=== PATIENT | female | born 1950 | race Caucasian/White ===

== ENCOUNTER 2017-01-09 19:34 | Observation (INO) ==
[2017-01-09] MEDS ORDERED: Ondansetron 4 MG/2 ML VIAL IVP ONE (19:50)
[2017-01-09] MEDS ORDERED: Famotidine 20 MG/2 ML VIAL IVP ONE (19:50)
--- NOTE | 2017-01-09 19:50 | Emergency Department Note ---
Disposition Clinical Impression: Ureterolithiasis Disposition: Home, Self-Care Condition: Good Instructions: Kidney Stones (ED), Renal Colic (ED) Reasons to Return/Additional Instructions: Please follow up with your regular doctor. Call when you leave here to set up a follow up appointment. Please return at any time if you are concerned about your symptoms or feel you are getting worse. Please follow up with your regular doctor for any refills of medications. Prescriptions: Oxycodone HCl/Acetaminophen [Percocet 5-325 mg Tablet] 1 each PO Q6H PRN #9 tablet PRN Reason: Pain Referrals: Adrian Roberson MD [Primary Care Provider] - Jeremy Giordano DO [Non-Partnered Physician] - Forms: ED Satisfaction Letter Time of Disposition: 21:27 Abdominal Pain HPI - General Chief Complaint: ED Abdominal Pain Stated Complaint: r flank pain Time Seen by Provider: 01/09/17 19:37 Source: patient, EMS Mode of arrival: EMS Limitations: no limitations Nursing Notes Reviewed: Yes Vital Signs Reviewed: Yes - History of Present Illness HPI Narrative: This 66-year-old female who presents today with right-sided flank pain that radiates into her right lower quadrant. She states that this came on this evening when she was driving home from her son's house. She states she took her morphine around 5 PM but it is not helping with her pain. She states she has had kidney stones in the past but they have never hurt like this before. She states she is unable to urinate. She states no fevers or chills. States she is nauseated but not vomiting. Pain Scale: 10 - Related Data Home Medications Medication Instructions Recorded Confirmed Cholecalciferol (Vitamin D3) 5,000 mg PO HS 10/24/14 01/09/17 [Vitamin D3] Loperamide HCl [Loperamide] 2 mg PO 8XD PRN 10/24/14 01/09/17 Omeprazole [PriLOSEC] 20 mg PO DAILY 10/24/14 01/09/17 Ondansetron [Zofran] 8 mg PO Q8HR PRN 02/02/16 01/09/17 Tolterodine LA (24 HR) [Detrol LA] 4 mg PO DAILY 02/02/16 01/09/17 Budesonide [Entocort EC] 6 mg PO DAILY 12/16/16 01/09/17 Loratadine [Claritin] 10 mg PO DAILY 12/16/16 01/09/17 Multivitamin [One Daily 1 tab PO DAILY 12/16/16 01/09/17 Multivitamin] Opium Tincture [Opium Tincture] 5 drop PO Q3H PRN 12/16/16 01/09/17 Previous Rx's Medication Instructions Recorded Oxycodone HCl/Acetaminophen 1 each PO Q6H PRN #9 tablet 01/09/17 [Percocet 5-325 mg Tablet] Allergies Allergy/AdvReac Type Severity Reaction Status Date / Time ciprofloxacin [From Cipro] Allergy Mild Rash Verified 12/16/16 08:58 iodine Allergy Mild Rash Verified 12/16/16 08:58 ketoconazole [From Nizoral] Allergy Mild Rash Verified 12/16/16 08:58 mesalamine [From Asacol] Allergy Mild Rash Verified 12/16/16 08:58 aspirin [From Percodan] AdvReac Mild Nausea Verified 12/16/16 08:58 doxycycline [From Vibramycin] AdvReac Mild Nausea Verified 12/16/16 08:58 levothyroxine sodium AdvReac Mild Chest Pain Verified 12/16/16 08:58 meperidine [From Demerol] AdvReac Mild Nausea Verified 12/16/16 08:58 Oxycodone [From Percodan] AdvReac Mild Nausea Verified 12/16/16 08:58 prochlorperazine AdvReac Mild Nausea Verified 12/16/16 08:58 [From Compazine] promethazine AdvReac Mild Nausea Verified 12/16/16 08:58 pseudoephedrine AdvReac Mild Nausea Verified 12/16/16 08:58 [From Actifed] sulfamethoxazole AdvReac Mild Nausea Verified 12/16/16 08:58 [From Septra] Tinidazole [From Tindamax] AdvReac Mild Nausea Verified 12/16/16 08:58 trimethoprim [From Septra] AdvReac Mild Nausea Verified 12/16/16 08:58 triprolidine [From Actifed] AdvReac Mild Nausea Verified 12/16/16 08:58 Review of Systems: ROS reviewed and negative except as per HPI Chart generated with voice recognition software Abdominal Pain PMH - Past Medical History Medical history: Reports: arthritis, cancer, GERD, malignancy, SVT, valvular heart disease, other Female Surgical History: Reports: other Psychiatric history: Reports: no psych history - Social History Smoking status: Never smoker Alcohol use: Reports: none Drug use: Reports: none Physical Exam General: mild distress, VSS Head: normocephalic, atraumatic Neck: NO CLA, Supple Chest wall: normal rise, no crepitus, no deformity noted Lungs: CTAB Heart: RRR, no murmur Abd: soft, nontender, BS normal, nonbloody stool in ostomy bag : deferred MSK: strength equal in all four extremities Ext: moves all four extremities, no obvious deformities Skin: cap refill normal, warm, dry Psych: anxious - General Limitations: no limitations General appearance: alert, in no apparent distress Course Course Narrative: patient has a 3mm stone on the right. reviewed labs and ct with patient. discussed pain control. she has morphine at home. explained [place] has laws about pain Rxs for people on chronic meds. discussed reasons to return. discussed need to follow upw gopal Gregorio. Patient comfortable with plan. Vital Signs Temperature 98.1 F 01/09/17 19:36 Pulse Rate 84 01/09/17 19:36 Respiratory Rate 18 01/09/17 19:36 Blood Pressure 131/58 01/09/17 19:36 O2 Sat by Pulse Oximetry 99 01/09/17 19:36 Temperature 98.1 F 01/09/17 19:36 Pulse Rate 85 01/09/17 21:13 Respiratory Rate 16 01/09/17 21:13 Blood Pressure 126/72 01/09/17 21:13 O2 Sat by Pulse Oximetry 97 01/09/17 21:13 Oxygen Delivery Oxygen Delivery Room Air Abdominal Pain - Medical Records Medical records reviewed: Yes I reviewed the patient's medical records. - Lab Data Lab results reviewed: Yes I reviewed the patient's lab results. Result diagrams: 01/09/17 20:02 01/09/17 20:02 Lab Results 01/09/17 01/09/17 01/09/17 Range/Units 20:02 20:02 20:02 WBC 7.5 (4.3-11.1) K/mcL RBC 3.99 (3.82-4.97) M/mcL Hgb 13.2 (11.5-15.4) g/dL Hct 39.9 (35.3-44.9) % MCV 100.0 (83.0-100.0) fL MCH 33.1 (28.0-33.3) pg MCHC 33.1 (31.6-35.5) g/dL RDW 14.0 (11.5-14.5) % Plt Count 133 L (140-400) K/mcL MPV 10.3 (9.4-12.4) fL Immature Gran % 0.4 (0-4) % Seg Neutrophils % 81.4 % Lymphocytes % 11.0 % Monocytes % 4.8 % Eosinophils % 2.0 % Basophils % 0.4 % Neutrophils # 6.1 (1.6-8.9) K/mcL Lymphocytes # 0.8 (0.6-4.6) K/mcL Monocytes # 0.4 (0.0-1.3) K/mcL Eosinophils # 0.2 (0.0-0.6) K/mcL Basophils # 0.0 (0.0-0.2) K/mcL PT (9.4-12.1) Seconds INR APTT (26.0-36.0) Seconds Sodium 144 (136-145) mEq/L Potassium 4.0 (3.5-4.5) mEq/L Chloride 115 H (98-109) mEq/L Carbon Dioxide 15 L (19-29) mEq/L BUN 19 (7-20) mg/dL Creatinine 1.14 H (0.57-1.11) mg/dL Est GFR ( Amer) 58 L (> 60) Est GFR (Non-Af Amer) 48 L (> 60) BUN/Creatinine Ratio 17 (6-26) Glucose 111 H (70-99) mg/dL Calculated Osmolality 301 H (280-300) Lactic Acid 1.6 (0.5-2.2) mmol/L Calcium 9.5 (8.6-10.8) mg/dL Total Bilirubin 0.4 (0.2-1.2) mg/dL Direct Bilirubin 0.2 (0.0-0.5) mg/dL Indirect Bilirubin 0.2 (0.0-1.2) mg/dL AST 24 (5-34) Units/L ALT 24 (0-55) Units/L Alkaline Phosphatase 118 (38-126) Units/L Serum Total Protein 6.6 (6.0-8.3) g/dL Albumin 3.6 (3.5-5.0) g/dL Globulin 3.0 (2.4-3.5) g/dL Albumin/Globulin Ratio 1.2 (1.1-2.2) Amylase 126 H (25-125) Units/L Lipase 51 (8-78) Units/L Urine Color (Yellow) Urine Clarity (Clear) Urine pH (5.0-8.0) pH Units Ur Specific [place] (1.010-1.025) Urine Protein (Neg-Trace) mg/dL Urine Glucose (UA) (Normal) mg/dL Urine Ketones (Negative) mg/dL Urine Blood (Negative) Urine Nitrite (Negative) Urine Bilirubin (Negative) Urine Urobilinogen (Normal) mg/dL Ur Leukocyte Esterase (Negative) Urine Microscopic RBC (0-3) per hpf Urine Microscopic WBC (0-3) per hpf Ur Squamous Epith Cells (None-Few) per lpf Ur Renal Epithelial Cell (None-Few) per hpf Urine Bacteria (None-Few) per hpf Hyaline Casts (None-Few) per lpf Other Casts Urine Mucus (Few) Ur Culture Indicated? (NO) 01/09/17 01/09/17 Range/Units 20:08 20:40 WBC (4.3-11.1) K/mcL RBC (3.82-4.97) M/mcL Hgb (11.5-15.4) g/dL Hct (35.3-44.9) % MCV (83.0-100.0) fL MCH (28.0-33.3) pg MCHC (31.6-35.5) g/dL RDW (11.5-14.5) % Plt Count (140-400) K/mcL MPV (9.4-12.4) fL Immature Gran % (0-4) % Seg Neutrophils % % Lymphocytes % % Monocytes % % Eosinophils % % Basophils % % Neutrophils # (1.6-8.9) K/mcL Lymphocytes # (0.6-4.6) K/mcL Monocytes # (0.0-1.3) K/mcL Eosinophils # (0.0-0.6) K/mcL Basophils # (0.0-0.2) K/mcL PT 11.2 (9.4-12.1) Seconds INR 1.0 APTT 36.7 H (26.0-36.0) Seconds Sodium (136-145) mEq/L Potassium (3.5-4.5) mEq/L Chloride (98-109) mEq/L Carbon Dioxide (19-29) mEq/L BUN (7-20) mg/dL Creatinine (0.57-1.11) mg/dL Est GFR ( Amer) (> 60) Est GFR (Non-Af Amer) (> 60) BUN/Creatinine Ratio (6-26) Glucose (70-99) mg/dL Calculated Osmolality (280-300) Lactic Acid (0.5-2.2) mmol/L Calcium (8.6-10.8) mg/dL Total Bilirubin (0.2-1.2) mg/dL Direct Bilirubin (0.0-0.5) mg/dL Indirect Bilirubin (0.0-1.2) mg/dL AST (5-34) Units/L ALT (0-55) Units/L Alkaline Phosphatase (38-126) Units/L Serum Total Protein (6.0-8.3) g/dL Albumin (3.5-5.0) g/dL Globulin (2.4-3.5) g/dL Albumin/Globulin Ratio (1.1-2.2) Amylase (25-125) Units/L Lipase (8-78) Units/L Urine Color Yellow (Yellow) Urine Clarity Clear (Clear) Urine pH 5.5 (5.0-8.0) pH Units Ur Specific [place] >= 1.030 H (1.010-1.025) Urine Protein 30 H (Neg-Trace) mg/dL Urine Glucose (UA) Normal (Normal) mg/dL Urine Ketones Trace H (Negative) mg/dL Urine Blood Moderate H (Negative) Urine Nitrite Negative (Negative) Urine Bilirubin Negative (Negative) Urine Urobilinogen Normal (Normal) mg/dL Ur Leukocyte Esterase Negative (Negative) Urine Microscopic RBC 50-100 H (0-3) per hpf Urine Microscopic WBC 0-3 (0-3) per hpf Ur Squamous Epith Cells Few (None-Few) per lpf Ur Renal Epithelial Cell Few (None-Few) per hpf Urine Bacteria Moderate H (None-Few) per hpf Hyaline Casts Few (None-Few) per lpf Other Casts See Below A Urine Mucus Few (Few) Ur Culture Indicated? NO (NO) - Radiology Data Radiology results reviewed: Yes I reviewed the patient's radiology results.
[2017-01-09 20:08] LABS: Basophils % 0.4 %; Eosinophils # 0.2 K/mcL (0.0-0.6); Hematocrit 39.9 % (35.3-44.9); Hemoglobin 13.2 g/dL (11.5-15.4); Immature Granulocytes % 0.4 % (0-4); Lymphocytes # 0.8 K/mcL (0.6-4.6); Mean Corpuscular HGB Conc 33.1 g/dL (31.6-35.5); Mean Corpuscular Hemoglobin 33.1 pg (28.0-33.3); Mean Platelet Volume 10.3 fL (9.4-12.4); Monocytes # 0.4 K/mcL (0.0-1.3); Monocytes % 4.8 %; Neutrophils # 6.1 K/mcL (1.6-8.9); Platelet Count 133 K/mcL (140-400); Red Blood Count 3.99 M/mcL (3.82-4.97); Segmented Neutrophils % 81.4 %
[2017-01-09] MEDS ORDERED: 0.9 % Sodium Chloride 1,000 ML ONE ×2 (20:17→22:14)
[2017-01-09 20:18] LABS: Prothrombin Time 11.2 Seconds (9.4-12.1)
[2017-01-09 20:21] LABS: Activated Partial Thrombo Time 36.7 Seconds (26.0-36.0)
[2017-01-09] MEDS ORDERED: *HR* FentaNYL (PF) 100 MCG/2 ML VIAL IVP ONE (20:25)
[2017-01-09 20:34] LABS: Albumin 3.6 g/dL (3.5-5.0); Albumin/Globulin Ratio 1.2 (1.1-2.2); Bilirubin,Direct 0.2 mg/dL (0.0-0.5); Bilirubin,Indirect 0.2 mg/dL (0.0-1.2); Bilirubin,Total 0.4 mg/dL (0.2-1.2); Calcium 9.5 mg/dL (8.6-10.8); Total Protein 6.6 g/dL (6.0-8.3)
[2017-01-09 20:47] LABS: Bilirubin,Urine Negative (Negative); Blood,Urine Moderate (Negative); Clarity,Urine Clear (Clear); Color,Urine Yellow (Yellow); Glucose,Urine (UA) Normal (Normal); Ketones,Urine Trace mg/dL (Negative); Leukocyte Esterase,Urine Negative (Negative); Nitrite,Urine Negative (Negative); PH,Urine 5.5 pH Units (5.0-8.0); Protein,Urine 30 mg/dL (Neg-Trace); Specific Gravity,Urine >= 1.030 (1.010-1.025); Urobilinogen,Urine Normal (Normal)
[2017-01-09 20:56] LABS: Hyaline Casts,Urine Few per lpf (None-Few); Mucus,Urine Few (Few); Squamous Epithelial Cell,Urine Few per lpf (None-Few)
[2017-01-09 21:03] LABS: Bacteria,Urine Moderate per hpf (None-Few); RBC,Urine 50-100 per hpf (0-3); Renal Epithelial Cells,Urine Few per hpf (None-Few); WBC,Urine 0-3 per hpf (0-3)
[2017-01-09] MEDS ORDERED: *HR* OxyCODONE/APAP 5/325 TABLET PO ONE ×2 (21:18→22:48)
[2017-01-09] MEDS ORDERED: Naloxone 0.4 MG/ML INJ IVP PRN (22:14)
[2017-01-09] MEDS ORDERED: Ondansetron ODT 4 MG TAB.RAPDIS PO PRN (22:14)
[2017-01-09] MEDS ORDERED: *HR* OxyCODONE Immed Rel 5 MG TABLET PO PRN (22:14)
[2017-01-09] MEDS ORDERED: *HR* OxyCODONE/APAP 5/325 TABLET PO PRN (22:48)
[2017-01-09] MEDS: Ondansetron ODT 4 MG TAB.RAPDIS SL PRN (23:08)
[2017-01-09] MEDS: ALPRAZolam 0.5 MG TABLET PO PRN (23:08)
[2017-01-10 00:11] LABS: Bilirubin,Urine Negative (Negative); Blood,Urine Moderate (Negative); Clarity,Urine Slightly Cloudy (Clear); Color,Urine Yellow (Yellow); Glucose,Urine (UA) Normal (Normal); Ketones,Urine Negative (Negative); Leukocyte Esterase,Urine Negative (Negative); Nitrite,Urine Negative (Negative); PH,Urine 5.5 pH Units (5.0-8.0); Protein,Urine 30 mg/dL (Neg-Trace); Specific Gravity,Urine >= 1.030 (1.010-1.025); Urobilinogen,Urine Normal (Normal)
[2017-01-10 00:15] LABS: Bacteria,Urine Moderate per hpf (None-Few); Hyaline Casts,Urine Moderate per lpf (None-Few); Mucus,Urine Few (Few); RBC,Urine 15-30 per hpf (0-3); Squamous Epithelial Cell,Urine Moderate per lpf (None-Few)
[2017-01-10] MEDS: *HR* OxyCODONE/APAP 5/325 TABLET PO PRN ×3 (02:49→20:39)
[2017-01-10] MEDS: Tolterodine LA (24 HR) 2 MG CAP.ER.24H PO SCH (07:56)
[2017-01-10] MEDS: Loratadine 10 MG TABLET PO SCH (07:57)
[2017-01-10] MEDS: Budesonide [Entocort Ec] 6 MG PO SCH (08:01)
[2017-01-10 11:05] LABS: Eosinophils # 0.3 K/mcL (0.0-0.6); Hemoglobin 12.8 g/dL (11.5-15.4)
[2017-01-10 11:14] LABS: Calcium 9.1 mg/dL (8.6-10.8); Potassium 3.7 mEq/L (3.5-4.5)
[2017-01-10 11:44] LABS: Basophils % 0.3 %; Eosinophils % 5.1 %; Immature Granulocytes % 0.3 % (0-4); Lymphocytes # 1.3 K/mcL (0.6-4.6); Lymphocytes % 19.2 %; Monocytes # 0.4 K/mcL (0.0-1.3); Monocytes % 5.7 %; Neutrophils # 4.5 K/mcL (1.6-8.9); Segmented Neutrophils % 69.4 %
[2017-01-10 11:45] LABS: Hematocrit 38.1 % (35.3-44.9); Mean Corpuscular Hemoglobin 33.8 pg (28.0-33.3); Mean Corpuscular Volume 100.5 fL (83.0-100.0); Red Blood Count 3.79 M/mcL (3.82-4.97)
[2017-01-10 11:46] LABS: Mean Corpuscular HGB Conc 33.6 g/dL (31.6-35.5); Mean Platelet Volume 9.9 fL (9.4-12.4); Platelet Count 131 K/mcL (140-400); Red Cell Distribution Width 14.2 % (11.5-14.5)
--- NOTE | 2017-01-10 12:28 | Internal Med History&Physical ---
Date of Encounter: 01/10/17 Time of Encounter: 11:55 Assessment and Plan (1) Ureterolithiasis Current visit: Yes Status: Acute She will be started on IV fluids and be given scheduled and prn analgesics. Further workup will be done as needed. (2) Azotemia Current visit: Yes Status: Acute We will give IV fluids and monitor renal indices. Internal Medicine - H&P: HPI Chief complaint: Right flank pain Admitted From: Home Plans for Post Hospital Care: Home History of present illness: Ms. Caba is a 66 year old female who states she had abrupt onset of severe right flank pain while riding a car the afternoon of admission. She became nauseated and had dry heaves. When she arrived home the pain had not lessened so her called the squad. She was brought to emergency room and evaluated. CT scan showed 3 mm stone in the distal ureter. She was admitted to [facility] for ongoing care needs. She reports she has passed 2 previous small stones but has not had stone analysis. Her history is pertinent otherwise for urinary infections and OAB. She denies chronic kidney disease or other kidney or bladder disorders. Past Med Surg Social Fam HX - Past Medical History Medical history: arthritis, cancer, GERD, malignancy, SVT, valvular heart disease, other Psychiatric history: no psych history - Past Surgical History Surgical History: cancer surgery, cholecystectomy, colostomy, hysterectomy, orthopedic, other, other - Social History Smoking Status: Never smoker Smokeless Tobacco Status: No Alcohol use: none Drug use: none Internal Medicine - H&P: Meds Cholecalciferol (Vitamin D3) [Vitamin D3] 5,000 mg PO HS 10/24/14 [History] Loperamide HCl [Loperamide] 2 mg PO 8XD PRN 10/24/14 [History] Omeprazole [PriLOSEC] 20 mg PO DAILY 10/24/14 [History] Ondansetron [Zofran] 8 mg PO Q8HR PRN 02/02/16 [History] Tolterodine LA (24 HR) [Detrol LA] 4 mg PO DAILY 02/02/16 [History] Budesonide [Entocort EC] 6 mg PO DAILY 12/16/16 [History] Loratadine [Claritin] 10 mg PO DAILY 12/16/16 [History] Multivitamin [One Daily Multivitamin] 1 tab PO DAILY 12/16/16 [History] Opium Tincture [Opium Tincture] 5 drop PO Q3H PRN 12/16/16 [History] Oxycodone HCl/Acetaminophen [Percocet 5-325 mg Tablet] 1 each PO Q6H PRN #9 tablet 01/09/17 [Rx] 3 Allergy/AdvReac Type Severity Reaction Status Date / Time ciprofloxacin [From Cipro] Allergy Mild Rash Verified 12/16/16 08:58 iodine Allergy Mild Rash Verified 12/16/16 08:58 ketoconazole [From Nizoral] Allergy Mild Rash Verified 12/16/16 08:58 mesalamine [From Asacol] Allergy Mild Rash Verified 12/16/16 08:58 aspirin [From Percodan] AdvReac Mild Nausea Verified 12/16/16 08:58 doxycycline [From Vibramycin] AdvReac Mild Nausea Verified 12/16/16 08:58 levothyroxine sodium AdvReac Mild Chest Pain Verified 12/16/16 08:58 meperidine [From Demerol] AdvReac Mild Nausea Verified 12/16/16 08:58 Oxycodone [From Percodan] AdvReac Mild Nausea Verified 12/16/16 08:58 prochlorperazine AdvReac Mild Nausea Verified 12/16/16 08:58 [From Compazine] promethazine AdvReac Mild Nausea Verified 12/16/16 08:58 pseudoephedrine AdvReac Mild Nausea Verified 12/16/16 08:58 [From Actifed] sulfamethoxazole AdvReac Mild Nausea Verified 12/16/16 08:58 [From Septra] Tinidazole [From Tindamax] AdvReac Mild Nausea Verified 12/16/16 08:58 trimethoprim [From Septra] AdvReac Mild Nausea Verified 12/16/16 08:58 triprolidine [From Actifed] AdvReac Mild Nausea Verified 12/16/16 08:58 All Systems PM: A 10-system review of systems was performed and is negative for pertinent findings except as documented above in the HPI. Review of systems: Gen.: She states her weight has been stable the past few months Cardiovascular: She denies hypertension MS heart failure angina DVT or pulmonary embolus. She has history of mitral valve prolapse Respiratory: She is a lifelong nonsmoker and has no known chronic lung disease. She does have intermittent cough. GI: She had total colectomy and partial small bowel resection surgeries with ileostomy placement since being diagnosed with Crohn's disease in 1986. She reports she has only approximately 6 feet of small intestine remaining. She has had cholecystectomy. 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 She took chemotherapy [id number]. She follows with an oncologist at [facility] and was told she was cancer free at her last visit 6 months ago. She has GERD. : As per history of present illness Neurologic: She has peripheral neuropathy from chemotherapy. She denies large distribution strokes or seizures. Endocrine: She denies diabetes thyroid disease or hyperlipidemia Hematology/oncology: She had liver and spleen malignancy as per above. She has had skin cancers in the past. She denies other internal malignancies. She has had anemia in the past that has resolved. Psychiatric: She denies anxiety depression or other mental health issues Musk skeletal: She has DJD and osteoporosis. She denies gout or other bone joint or muscle disorders. She had recent right foot hammertoe surgery. - Constitutional Vitals: Temp Pulse Resp BP Pulse Ox 98.1 F 66 16 87/52 100 01/10/17 11:33 01/10/17 11:33 01/10/17 11:33 01/10/17 11:33 01/10/17 11:33 Exam: Gen.: She is a well-developed well-nourished female who appears in no acute distress at present time. She states she is having no significant pain at this time. HEENT: Head is atraumatic and normocephalic. Eyes: EOMI. There is no scleral icterus. Mouth: Mucosa is moist. Neck: Supple and nontender. There is no thyromegaly or adenopathy noted. Heart: Regular without murmurs gallops or ectopics. Lungs: No wheezes or crackles are heard. Abdomen: She has an ostomy bag in the right mid lower abdominal area. There is fecal drainage in the bag. She has ventral wall hernias on the mid and left abdominal area. No masses or guarding are noted. Extremities: There is no cyanosis edema or clubbing noted. Dorsalis pedis and posterior tibial pulses are trace to 1+ palpable in the left foot. Right lower leg has a immobilizer in place from recent surgery. Neurologic: Mental status: She is talkative and a good historian. Cranial nerves: Smile is symmetric. Forehead wrinkles bilaterally. Tongue protrudes midline. EOMI. Motor: There is no pronator drift. Cerebellar: Finger to nose is intact bilaterally. Skin: Warm and dry Internal Med - H&P Results - Labs CBC & Chem 7: 01/10/17 11:25 01/10/17 10:35 Labs: Short CBC 01/10/17 01/10/17 Range/Units 10:35 11:25 WBC 6.5 (4.3-11.1) K/mcL Hgb 12.8 (11.5-15.4) g/dL Hct 38.1 (35.3-44.9) % Plt Count 131 L (140-400) K/mcL Neutrophils # 4.5 (1.6-8.9) K/mcL BMP 01/10/17 10:35 Sodium 144 Potassium 3.7 Chloride 115 H Carbon Dioxide 19 BUN 23 H Creatinine 1.28 H Glucose 102 H Calcium 9.1 Urine 01/10/17 Range/Units 00:00 Urine Color Yellow (Yellow) Urine Clarity Slightly Cloudy A (Clear) Urine pH 5.5 (5.0-8.0) pH Units Ur Specific [place] >= 1.030 H (1.010-1.025) Urine Protein 30 H (Neg-Trace) mg/dL Urine Glucose (UA) Normal (Normal) mg/dL
[2017-01-10] MEDS: *HR* Morphine 2 MG/ML SYRINGE IVP PRN ×2 (13:41→17:04)
[2017-01-10] MEDS: Terconazole Vag SUPP 80 MG SUPP.VAG VG SCH (19:17)
[2017-01-10] MEDS: Cholecalciferol (D-3) 1,000 UNIT TABLET PO SCH (20:39)
[2017-01-11] MEDS: ALPRAZolam 0.5 MG TABLET PO PRN ×2 (03:37→22:24)
[2017-01-11] MEDS: Budesonide [Entocort Ec] 6 MG PO SCH (08:21)
[2017-01-11] MEDS: Ondansetron ODT 4 MG TAB.RAPDIS SL PRN ×2 (08:39→20:27)
[2017-01-11] MEDS: Loratadine 10 MG TABLET PO SCH (08:40)
[2017-01-11] MEDS: Tolterodine LA (24 HR) 2 MG CAP.ER.24H PO SCH (08:40)
[2017-01-11] MEDS: *HR* OxyCODONE/APAP 5/325 TABLET PO PRN ×2 (08:40→13:42)
--- NOTE | 2017-01-11 10:39 | Internal Med Progress Note ---
Date of Encounter: 01/11/17 Time of Encounter: 10: - Assessment and plan (1) Ureterolithiasis Current Visit: Yes Status: Acute Assessment and plan: January 11. Continue IV fluids and analgesics. (2) Azotemia Current Visit: Yes Status: Acute Assessment and plan: January 11. We will recheck labs in a.m. - Subjective Interval history: January 11. She has no new complaints and feels better. She still having some flank pain and nausea. - Constitutional Vitals: Temp Pulse Resp BP Pulse Ox 97.9 F 68 18 106/65 98 01/11/17 07:08 01/11/17 07:08 01/11/17 07:08 01/11/17 07:08 01/11/17 07:08 Exam: Her affect is more bright and cheerful. She appears in no acute distress. I reviewed her medications and lab results. Internal Medicine: Result - Labs CBC & Chem 7: 01/10/17 11:25 01/10/17 10:35 Labs: Short CBC 01/10/17 01/10/17 Range/Units 10:35 11:25 WBC 6.5 (4.3-11.1) K/mcL Hgb 12.8 (11.5-15.4) g/dL Hct 38.1 (35.3-44.9) % Plt Count 131 L (140-400) K/mcL Neutrophils # 4.5 (1.6-8.9) K/mcL BMP 01/10/17 10:35 Sodium 144 Potassium 3.7 Chloride 115 H Carbon Dioxide 19 BUN 23 H Creatinine 1.28 H Glucose 102 H Calcium 9.1 - ABG Interpretation ABG results: PT/INR, D-dimer PT 11.2 Seconds (9.4-12.1) 01/09/17 20:08 Consult Discharge Plan - Plan Referrals: Adrian Roberson MD [Primary Care Provider] - 1 week
[2017-01-11] MEDS: Cholecalciferol (D-3) 1,000 UNIT TABLET PO SCH (20:14)
[2017-01-11] MEDS: Terconazole Vag SUPP 80 MG SUPP.VAG VG SCH (20:15)
[2017-01-12] MEDS: *HR* OxyCODONE/APAP 5/325 TABLET PO PRN (03:40)
[2017-01-12 06:37] LABS: Basophils % 0.2 %; Eosinophils # 0.3 K/mcL (0.0-0.6); Eosinophils % 5.9 %; Hematocrit 32.4 % (35.3-44.9); Hemoglobin 10.9 g/dL (11.5-15.4); Immature Granulocytes % 0.2 % (0-4); Lymphocytes # 0.8 K/mcL (0.6-4.6); Lymphocytes % 14.2 %; Mean Corpuscular HGB Conc 33.6 g/dL (31.6-35.5); Mean Corpuscular Hemoglobin 33.4 pg (28.0-33.3); Mean Corpuscular Volume 99.4 fL (83.0-100.0); Mean Platelet Volume 9.6 fL (9.4-12.4); Monocytes # 0.3 K/mcL (0.0-1.3); Monocytes % 4.7 %; Neutrophils # 4.3 K/mcL (1.6-8.9); Red Blood Count 3.26 M/mcL (3.82-4.97); Red Cell Distribution Width 13.7 % (11.5-14.5); Segmented Neutrophils % 74.8 %
[2017-01-12 06:50] LABS: Platelet Count 95 K/mcL (140-400)
[2017-01-12 06:51] LABS: BUN/Creatinine Ratio 16 (6-26); Blood Urea Nitrogen 13 mg/dL (7-20); Calcium 8.3 mg/dL (8.6-10.8); Carbon Dioxide 20 mEq/L (19-29); Chloride 113 mEq/L (98-109); Glucose 86 mg/dL (70-99); Osmolality,Calculated 291 (280-300); Potassium 3.6 mEq/L (3.5-4.5); Sodium 141 mEq/L (136-145); eGFR For African Americans > 60 (> 60); eGFR For Non-African Americans > 60 (> 60)
[2017-01-12 07:47] VITALS: BP 82/52
[2017-01-12] MEDS: Loratadine 10 MG TABLET PO SCH (08:13)
[2017-01-12] MEDS: Tolterodine LA (24 HR) 2 MG CAP.ER.24H PO SCH (08:14)
[2017-01-12] MEDS: Budesonide [Entocort Ec] 6 MG PO SCH (08:15)
--- NOTE | 2017-01-12 09:38 | Discharge Summary ---
Date of Encounter: 01/12/17 Time of Encounter: 09:25 - Discharge Diagnosis (1) Ureterolithiasis Priority: Primary Status: Acute (2) Azotemia Priority: Secondary Status: Resolved - Discharge Medications Prescriptions: ALPRAZolam [Xanax 0.5 MG Tablet] 0.5 mg PO TID PRN #10 tablet PRN Reason: Anxiety Oxycodone HCl/Acetaminophen [Percocet 5-325 mg Tablet] 2 each PO Q4H PRN #20 tablet PRN Reason: Pain Home Medications: Cholecalciferol (Vitamin D3) [Vitamin D3] 5,000 mg PO HS 10/24/14 [History] Loperamide HCl [Loperamide] 2 mg PO 8XD PRN 10/24/14 [History] Omeprazole [PriLOSEC] 20 mg PO DAILY 10/24/14 [History] Ondansetron [Zofran] 8 mg PO Q8HR PRN 02/02/16 [History] Tolterodine LA (24 HR) [Detrol LA] 4 mg PO DAILY 02/02/16 [History] Budesonide [Entocort EC] 6 mg PO DAILY 12/16/16 [History] Loratadine [Claritin] 10 mg PO DAILY 12/16/16 [History] Multivitamin [One Daily Multivitamin] 1 tab PO DAILY 12/16/16 [History] Opium Tincture 5 drop PO Q3H PRN 12/16/16 [History] Oxycodone HCl/Acetaminophen [Percocet 5-325 mg Tablet] 1 each PO Q6H PRN #9 tablet 01/09/17 [Rx] ALPRAZolam [Xanax 0.5 MG Tablet] 0.5 mg PO TID PRN #10 tablet 01/12/17 [Rx] Oxycodone HCl/Acetaminophen [Percocet 5-325 mg Tablet] 2 each PO Q4H PRN #20 tablet 01/12/17 [Rx] Allergies/Adverse Reactions: 3 Allergy/AdvReac Type Severity Reaction Status Date / Time ciprofloxacin [From Cipro] Allergy Mild Rash Verified 12/16/16 08:58 iodine Allergy Mild Rash Verified 12/16/16 08:58 ketoconazole [From Nizoral] Allergy Mild Rash Verified 12/16/16 08:58 mesalamine [From Asacol] Allergy Mild Rash Verified 12/16/16 08:58 aspirin [From Percodan] AdvReac Mild Nausea Verified 12/16/16 08:58 doxycycline [From Vibramycin] AdvReac Mild Nausea Verified 12/16/16 08:58 levothyroxine sodium AdvReac Mild Chest Pain Verified 12/16/16 08:58 meperidine [From Demerol] AdvReac Mild Nausea Verified 12/16/16 08:58 Oxycodone [From Percodan] AdvReac Mild Nausea Verified 12/16/16 08:58 prochlorperazine AdvReac Mild Nausea Verified 12/16/16 08:58 [From Compazine] promethazine AdvReac Mild Nausea Verified 12/16/16 08:58 pseudoephedrine AdvReac Mild Nausea Verified 12/16/16 08:58 [From Actifed] sulfamethoxazole AdvReac Mild Nausea Verified 12/16/16 08:58 [From Septra] Tinidazole [From Tindamax] AdvReac Mild Nausea Verified 12/16/16 08:58 trimethoprim [From Septra] AdvReac Mild Nausea Verified 12/16/16 08:58 triprolidine [From Actifed] AdvReac Mild Nausea Verified 12/16/16 08:58 Date of admission: 01/09/17 22:07 Primary care physician: Adrian Roberson MD - Patient Status Disposition: Home, Self-Care Condition: Good Functional capacity at discharge: independent ambulation Overall status at discharge: patient is progressing back to baseline - Discharge Instructions Follow Up With: Adrian Roberson MD [Primary Care Provider] - 1 week Andrew Darden MD [Partnered Physician] - 1 week Additional Instructions: Strain urine to collect kidney stone - Diet and Activity Activity: resume usual activities as tolerated Diet: advance to your usual diet Hospital course: Ms. Caba is a 66 year old female who states she had abrupt onset of severe right flank pain while riding a car the afternoon of admission. She became nauseated and had dry heaves. When she arrived home the pain had not lessened so her called the squad. She was brought to emergency room and evaluated. CT scan showed 3 mm stone in the distal ureter. She was admitted to [facility] for ongoing care needs. Initial orders were written by the emergency room physician. I saw her on January 10 and performed the history and physical. She was given IV fluids and analgesics. Her pain improved but did not completely resolve. She did not have any documented passage of kidney stones. She had adequate food and fluid intake and on January 12 I felt she was stable for discharge home. Her BUN and creatinine had normalized to 13 and 0.82 by day of discharge. She will be given a urine strainer kit for home use to collect the stone. She will follow with her urologist Dr. Darden and with her PCP Dr. Adrian Roberson within 1 week. - Time Spent with Patient Total time spent providing and/or coordinating discharge services: - Constitutional Vitals: Temp Pulse Resp BP Pulse Ox 98.2 F 61 20 82/52 98 01/12/17 07:44 01/12/17 07:44 01/12/17 07:44 01/12/17 07:44 01/12/17 07:44
== END 2017-01-12 10:34 | disposition home or self-care (01) ==
LOC: EMEROOPIK 19:34 → INPPIK 19:34
PROVIDERS: ADMIT Internal Medicine; ATTEND Internal Medicine